=== PATIENT | female | born 1975 | race Caucasian/White ===

== ENCOUNTER 2019-01-22 20:26 | Emergency (ER) | payer SELFPAY ==
[~2019-01-22] VITALS: Ht 160 cm; Wt 73.0 kg
[2019-01-22 20:44] VITALS: Ht 160 cm; Wt 73.0 kg
[2019-01-22 22:02] VITALS: BP 140/99
== END 2019-01-22 22:02 | disposition home or self-care (01) ==
LOC: ED 20:26
DX: R05 Cough (principal); R09.81 Nasal congestion
CPT/HCPCS: Q0092